=== PATIENT | female | born 2000 | race Caucasian/White ===

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

== ENCOUNTER 2019-08-16 11:17 | Emergency (ER) | payer BC | END 2019-08-16 11:22 | disposition left against medical advice (07) | LOC: UCCORT 11:17 | DX: Z53.21 Procedure and treatment not carried out due to patient leaving prior to being seen by health care provider (principal) ==

== ENCOUNTER 2019-08-16 16:57 | Emergency (ER) | payer BC ==
[2019-08-16 17:22] VITALS: BP 117/75
[2019-08-16 18:15] LABS: Influenza A Molecular Negative (Negative); Influenza B Molecular Negative (Negative)
--- NOTE | 2019-08-16 18:26 | UC ---
FLU HPI - HPI Summary HPI Summary: Patient is a 18yo female presenting with sore throat, fever, and body aches x1 day. Patient states fever was 101.5 last night. Denies cough. Denies nasal congestion. Denies sob and wheezing. Decreased appetite. Taking tylenol for fever relief. Concerned for flu. Denies concern for strep throat. - History of Current Complaint Chief Complaint: UCGeneralIllness Stated Complaint: FEVER,MUSCLE ACHES,CHILLS Hx Obtained From: Patient Hx Last Menstrual Period: 07/2019 Pain Intensity: 5 Pain Scale Used: 0-10 Numeric - Allergy/Home Medications Allergies/Adverse Reactions: Allergies Allergy/AdvReac Type Severity Reaction Status Date / Time No Known Allergies Allergy Verified 08/16/19 17:22 Home Medications: Home Medications Albuterol HFA INHALER* [Ventolin HFA Inhaler*] 2 puff INH Q6H PRN 07/28/18 [ History Confirmed 08/16/19] Budesonide/Formote 160/4.5(NF) [Symbicort 160/4.5 (NF)] 2 puff INH BID 07/28/18 [History Confirmed 08/16/19] Desloratidine (NF) [Clarinex (NF)] 5 mg PO DAILY 07/28/18 [History Confirmed ] Montelukast Sodium TAB* [Singulair TAB*] 10 mg PO DAILY 07/28/18 [History Confirmed 08/16/19] Control Pill 1 tab PO DAILY 08/16/19 [History Confirmed 08/16/19] Spironolactone TAB* [Aldactone TAB*] 100 mg PO DAILY 08/16/19 [History Confirmed 08/16/19] PMH/Surg Hx/FS Hx/Imm Hx Respiratory History: Asthma - Surgical History Surgical History: Yes Surgery Procedure, Year, and Place: sinus surgery - Family History Known Family History: Positive: Non-Contributory - Social History Alcohol Use: Occasionally Substance Use Type: None Smoking Status (MU): Never Smoked Tobacco Review of Systems All Other Systems Reviewed And Are Negative: Yes Constitutional: Positive: Fever - 101.5 max, Chills ENT: Positive: Sore Throat Respiratory: Positive: Negative Cardiovascular: Positive: Negative Musculoskeletal: Positive: Myalgia Neurological/Mental Status: Positive: Negative Physical Exam - Summary Physical Exam Summary: Vital Signs Reviewed: Yes A+Ox3, no distress Eyes: Conjunctiva Clear ENT: Hearing grossly normal, TM x 2 clear, moist, uvula midline, no exudate, no erythema Neck: Positive: Supple Respiratory: Positive: No respiratory distress, No accessory muscle use + CTA throughout no w/r Cardiovascular: RRR nl s1, s2 no m/r Musculoskeletal Exam: GRANDA x 4 without difficulty Neurological: Positive: Alert Psychological: Positive: age appropriate behavior Skin: Positive: no rash, no ecchymosis Vital Signs: Initial Vital Signs Temp 98.6 F 08/16/19 17:19 Pulse 85 08/16/19 17:19 Resp 14 08/16/19 17:19 BP 117/75 08/16/19 17:19 Pulse Ox 99 08/16/19 17:19 Lab Results 08/16/19 Range/Units 18:03 Influenza A (Rapid) Negative (Negative) Influenza B (Rapid) Negative (Negative) Flu Course/Dx - Course Course Of Treatment: Negative rapid flu. Patient declined strep testing. Discussed viral illness and symptomatic treatment with patient. Instructed to follow up with PCP or care [facility] if symptoms persist. Patient voiced understanding and agreed with the treatment plan. - Differential Dx/Diagnosis Differential Diagnosis/HQI/PQRI: Influenza, Upper Respiratory Infection Provider Diagnosis: Flu-like symptoms Discharge ED - Sign-Out/Discharge Documenting (check all that apply): Patient Departure All imaging exams completed and their final reports reviewed: No Studies - Discharge Plan Condition: Stable Disposition: HOME Patient Education Materials: Viral Syndrome (ED) Forms: *School Release Referrals: [facility] [Outside] - If Needed Additional Instructions: You tested negative for influenza today. Your symptoms are likely caused by a virus and should resolve without treatment. You may take over the counter cold and flu medications, such as TheraFlu, for symptom relief. Get plenty of rest and increase your fluid intake. Follow up with your primary care provider or the [facility] if symptoms do not improve within 5-7 days. - Billing Disposition and Condition Condition: STABLE Disposition: Home
== END 2019-08-16 18:45 | disposition home or self-care (01) ==
LOC: UCCORT 16:57
DX: J02.9 Acute pharyngitis, unspecified (principal); J45.909 Unspecified asthma, uncomplicated; R50.9 Fever, unspecified; M79.10 Myalgia, unspecified site; Z79.899 Other long term (current) drug therapy
CPT/HCPCS: 99211; G0463